=== PATIENT | male | born 1965 | race Caucasian/White ===

== ENCOUNTER → 2018-01-10 | Outpatient (REF) | payer OTHER ==
[2018-01-10 19:04] LABS: VITAMIN B12 LEVEL 540 PG/ML
[2018-01-10 19:05] LABS: FOLATE 8.1 NG/ML
== END ==
LOC: M LAB REF 16:35
DX: R20.8 Other disturbances of skin sensation (principal)

== ENCOUNTER → 2018-06-24 | Outpatient (CLI) | payer BC, OTHER | LOC: M SLEEP 19:22 | DX: G47.33 Obstructive sleep apnea (adult) (pediatric) (principal) | CPT/HCPCS: 95811 ==

== ENCOUNTER 2018-10-08 08:57 | Day surgery (SDC) | payer BC, OTHER ==
[2018-10-08] MEDS: NS 1,000 ML IV (06:45)
[~2018-10-08 08:57] MED LIST: LIDOCAINE 2% INJ 100 MG/5 ML SDV (FOR ANES.) As Ordered; PROPOFOL 200 MG/20 ML VIAL As Ordered
== END 2018-10-08 11:00 | disposition home or self-care (01) ==
LOC: M OPP 11:00
DX: Z12.11 Encounter for screening for malignant neoplasm of colon (principal); K64.1 Second degree hemorrhoids; K57.30 Diverticulosis of large intestine without perforation or abscess without bleeding; K63.5 Polyp of colon; E78.5 Hyperlipidemia, unspecified; F41.9 Anxiety disorder, unspecified; G47.30 Sleep apnea, unspecified; Z79.899 Other long term (current) drug therapy
CPT/HCPCS: 45380

== ENCOUNTER → 2020-01-28 | Outpatient (CLI) | payer BC, OTHER ==
[~2020-01-28] MED LIST changes: +ALPR0.5T3; +ATOR1TAB21; -LIDOCAINE 2% INJ 100 MG/5 ML SDV (FOR ANES.) As Ordered; -PROPOFOL 200 MG/20 ML VIAL As Ordered
--- NOTE | 2020-01-28 12:21 | REP ---
Right lower extremity arterial Doppler ultrasound: History: Decreased bolus in the right foot. Numbness in coldness in the right foot. Polyneuropathy. Sonographic findings: Ankle brachial index on the right lower extremity is normal at 1.2. Mild plaquing is seen. Normal triphasic waveforms are noted throughout the most the arteries in the right lower extremity with a biphasic waveform in the proximal ICA. No significant stenosis or occlusion is seen. Right lower extremity arterial Doppler velocity chart: CF A A 4 cm/S Profunda 61 Proximal SFA 91 Mid SFA 86 Distal SFA 76 Popliteal 35 Proximal AT A 11 Tibioperoneal trunk 56 Proximal FISHER DIP NET 77 Distal FISHER DIP NET 72 Distal AT A 45 Electronically Signed by Dain Vicente MD 01/28/2020 12:13 P
== END ==
LOC: M RAD 07:58
PROVIDERS: ATTEND Internal Medicine
DX: G62.9 Polyneuropathy, unspecified (principal)

== ENCOUNTER → 2020-03-22 | Outpatient (REF) | payer BC, OTHER ==
[2020-03-23 04:32] LABS: FREE THYROXINE INDEX 2.9 % (1.4-3.8); RHEUMATOID FACTOR QUANT < 10.0 IU/ML (<15.0); T UPTAKE 33 % (33-40); THYROID STIMULATING HORMONE 0.815 uIU/ML (0.358-3.740); THYROXINE (T4) 8.7 UG/DL (4.5-12.0); TOTAL PROTEIN 7.2 GM/DL (6.4-8.2)
[2020-03-23 09:39] LABS: FOLATE 13.1 NG/ML; VITAMIN B12 LEVEL 372 PG/ML
[2020-03-24 11:19] LABS: ALBUMIN % 59.4 % (55.8-66.1)
[2020-03-24 11:20] LABS: ALBUMIN 4.28 GM/DL (3.29-5.55); ALPHA-1-GLOBULIN % 3.6 % (2.9-4.9); ALPHA-1-GLOBULINS 0.26 GM/DL (0.17-0.41); ALPHA-2-GLOBULINS 0.79 GM/DL (0.42-0.99); BETA-1-GLOBULINS 0.45 GM/DL (0.28-0.60); BETA-1-GLOBULINS % 6.3 % (4.7-7.2); BETA-2-GLOBULINS % 5.6 % (3.2-6.5); GAMMA GLOBULIN % 14.1 % (11.1-18.8); GAMMA GLOBULINS 1.02 GM/DL (0.65-1.58)
[2020-03-28 00:06] LABS: ANTINUCLEAR ANTIBODIES DIRECT Negative (Negative); VITAMIN B1 LEVEL WHOLE BLOOD 164.9 nmol/L (66.5-200.0); VITAMIN B6,PYRIDOXAL PHOSPHATE 11.6 ug/L (5.3-46.7); VITAMIN E(ALPHA TOCOPHEROL) 9.3 mg/L (7.0-25.1); VITAMIN E(GAMMA TOCOPHEROL) 1.5 mg/L (0.5-5.5)
== END ==
LOC: M LAB REF 12:25
PROVIDERS: ATTEND Internal Medicine
DX: G62.9 Polyneuropathy, unspecified (principal); E03.9 Hypothyroidism, unspecified; R73.09 Other abnormal glucose

== ENCOUNTER 2020-09-13 05:27 | Emergency (ER) | payer BC, OTHER ==
[~2020-09-13] VITALS: Ht 180.3 cm; Wt 156.5 kg
[2020-09-13 05:27] VITALS: BP 157/98
--- NOTE | 2020-09-13 06:25 | REPVR ---
PROCEDURE INFORMATION: Exam: XR Right Finger(s) Exam date and time: 09/13/2020 6:16 AM Age: 55 years old Clinical indication: Pain; Finger(s); Right; Patient HX: Distal 4th digit injury from fall on ice TECHNIQUE: Imaging protocol: XR Right fingers. Views: Minimum 2 views. COMPARISON: No relevant prior studies available. FINDINGS: Bones/joints: Normal. Soft tissues: Normal. IMPRESSION: No acute findings. Electronically signed by: Jason Morgan On 09/13/2020 06:25:29 AM
== END 2020-09-13 06:49 | disposition home or self-care (01) ==
LOC: M ED 05:27
DX: M20.011 Mallet finger of right finger(s) (principal); W10.8XXA Fall (on) (from) other stairs and steps, initial encounter; Y92.098 Other place in other non-institutional residence as the place of occurrence of the external cause; Y93.01 Activity, walking, marching and hiking; Y99.8 Other external cause status; E78.5 Hyperlipidemia, unspecified; F41.9 Anxiety disorder, unspecified; F17.200 Nicotine dependence, unspecified, uncomplicated; Z79.899 Other long term (current) drug therapy

== ENCOUNTER → 2022-01-15 | Outpatient (CLI) | payer BC, OTHER | LOC: M RAD 10:20 | PROVIDERS: ATTEND Internal Medicine | DX: F17.210 Nicotine dependence, cigarettes, uncomplicated (principal) ==

== ENCOUNTER → 2022-02-14 | Outpatient (CLI) | payer BC, OTHER ==
[~2022-02-14] MED LIST changes: +ISOVUE-370 76% 100ML VIAL ONE
== END ==
LOC: M PLAIMG 12:34
PROVIDERS: ATTEND Internal Medicine
DX: R91.1 Solitary pulmonary nodule (principal)

== ENCOUNTER → 2023-06-10 | Outpatient (CLI) | payer BC, OTHER ==
[~2023-06-10] MED LIST changes: -ISOVUE-370 76% 100ML VIAL ONE
== END ==
LOC: M WUC 09:47
PROVIDERS: ATTEND Nurse Practitioner Family
DX: M25.571 Pain in right ankle and joints of right foot (principal)

== ENCOUNTER → 2023-07-09 | Outpatient (CLI) | payer BC, OTHER | LOC: M RAD 16:19 | PROVIDERS: ATTEND Internal Medicine | DX: Z12.2 Encounter for screening for malignant neoplasm of respiratory organs (principal); F17.210 Nicotine dependence, cigarettes, uncomplicated ==

== ENCOUNTER → 2023-10-25 | Outpatient (REF) | payer OTHER | LOC: M LAB REF 16:25 | PROVIDERS: ATTEND Nurse Practitioner Family | DX: R06.02 Shortness of breath (principal) ==

== ENCOUNTER → 2024-07-28 | Outpatient (CLI) | payer BC | LOC: M RAD 15:51 | PROVIDERS: ATTEND Internal Medicine | DX: F17.210 Nicotine dependence, cigarettes, uncomplicated (principal) ==

== ENCOUNTER → 2024-08-04 | Outpatient (REF) | payer OTHER | LOC: M LAB REF 16:22 | PROVIDERS: ATTEND Internal Medicine | DX: G60.9 Hereditary and idiopathic neuropathy, unspecified (principal); G47.33 Obstructive sleep apnea (adult) (pediatric) ==

== ENCOUNTER 2024-12-16 07:45 | Day surgery (SDC) | payer BC ==
[~2024-12-16] VITALS: Ht 180.3 cm; Wt 160.8 kg
[~2024-12-16 07:45] MED LIST changes: -ALPR0.5T3; +ALPR0.5T3 PO; +AMIT25TA19 PO; -ATOR1TAB21; +ATOR1TAB21 PO; +GABA-284 PO
[2024-12-16] MEDS ORDERED: propofoL 200 MG/20 ML VIAL As Ordered ONE (08:37)
[2024-12-16] MEDS ORDERED: LIDOCAINE 2% 100MG/5ML SDV (FOR ANES.) As Ordered ONE (08:37)
[2024-12-16] MEDS ORDERED: ALBUTEROL 6.7GM INHALER **FOR ANES. CART/OMNICELL ONLY As Ordered ONE (09:27)
[2024-12-16] MEDS ORDERED: MIDAZOLAM INJ 2MG/2ML VIAL As Ordered ONE (09:39)
[2024-12-16 10:05] VITALS: BP 166/76; O2SAT 97
== END 2024-12-16 10:13 | disposition home or self-care (01) ==
LOC: M OPP 07:45
PROVIDERS: ATTEND Internal Medicine Gastroenterology
DX: Z12.11 Encounter for screening for malignant neoplasm of colon (principal); Z85.038 Personal history of other malignant neoplasm of large intestine; Z86.0100 Personal history of colon polyps, unspecified; K64.0 First degree hemorrhoids; K64.4 Residual hemorrhoidal skin tags; K57.30 Diverticulosis of large intestine without perforation or abscess without bleeding; R06.83 Snoring; G47.33 Obstructive sleep apnea (adult) (pediatric); Z79.899 Other long term (current) drug therapy
CPT/HCPCS: G0105; J2250

== ENCOUNTER → 2025-01-20 | Outpatient (CLI) | payer BC | LOC: M WHC 06:55 | PROVIDERS: ATTEND Internal Medicine | DX: K11.5 Sialolithiasis (principal) ==

== ENCOUNTER → 2025-02-02 | Outpatient (REF) | payer BC ==
[2025-02-04 09:17] LABS: PROTEIN, TOTAL SO 7.4 g/dL (6.1-8.1)
== END ==
LOC: M LAB REF 15:11
PROVIDERS: ATTEND Internal Medicine
DX: G60.9 Hereditary and idiopathic neuropathy, unspecified (principal); G47.33 Obstructive sleep apnea (adult) (pediatric)

== ENCOUNTER → 2025-02-22 | Outpatient (CLI) | payer BC, OTHER | LOC: M RAD 15:41 | PROVIDERS: ATTEND Internal Medicine | DX: K11.5 Sialolithiasis (principal) ==

== ENCOUNTER → 2025-07-29 | Outpatient (CLI) | payer BC ==
[~2025-07-29] MED LIST changes: +ISOVUE-370 76% 100 ML VIAL ONE
== END ==
LOC: M PLAIMG 08:34
PROVIDERS: ATTEND Otolaryngology
DX: K11.20 Sialoadenitis, unspecified (principal)
CPT/HCPCS: 70491; Q9967